=== PATIENT | male | born 1970 | race Caucasian/White ===

== ENCOUNTER 2023-05-19 07:53 | Emergency (ER) | payer BC ==
[~2023-05-19] VITALS: Ht 165.1 cm; Wt 65.8 kg
[2023-05-19 07:54] VITALS: BP 158/67; PULSE 72; RESP 16; TEMP 98.3; O2SAT 98
[2023-05-19] MEDS ORDERED: ACETAMINOPHEN EXTRA STRENGTH 500 MG TAB PO ONE (08:20)
[2023-05-19] MEDS ORDERED: NAPR-1704 PO (09:04)
[2023-05-19 09:33] VITALS: BP 158/67; PULSE 72; RESP 16; TEMP 98.3; O2SAT 98
== END 2023-05-19 09:45 | disposition home or self-care (01) ==
LOC: MED 07:53
DX: M72.2 Plantar fascial fibromatosis (principal); Z79.899 Other long term (current) drug therapy
CPT/HCPCS: 73630; 99283